=== PATIENT | female | born 1980 | race Two or more races ===

== ENCOUNTER 2023-08-10 23:15 | Emergency (ER) | payer MEDICAID ==
[~2023-08-10] VITALS: Ht 162.6 cm; Wt 97.7 kg
[2023-08-10 23:22] VITALS: TEMP 98
[2023-08-11] MEDS ORDERED: KETOROLAC TROMETHAMINE 30 MG/ML VIAL IVP ONE (00:45)
[2023-08-11] MEDS ORDERED: SODIUM CHLORIDE 0.9% 1,000 ML IV ONE (00:45)
[2023-08-11] MEDS ORDERED: MORPHINE SULFATE 4 MG/ML SYRINGE IVP ONE (00:45)
[2023-08-11] MEDS ORDERED: METHOCARBAMOL 100 MG/ML 10 ML VIAL IVP ONE (00:45)
[2023-08-11 01:04] LABS: BASOPHILS % (AUTO) 0.6 % (0.0-2.0); EOSINOPHILS % (AUTO) 3.7 % (1.0-6.0); HEMATOCRIT 36.7 % (36-46); HEMOGLOBIN 12.3 g/dL (12.0-16.0); LYMPHOCYTES # (AUTO) 2.2 K/uL (1.0-4.8); LYMPHOCYTES % (AUTO) 23.6 % (22.0-44.0); MEAN CORPUSCULAR HEMOGLOBIN 29.6 pg (26.0-34.0); MEAN CORPUSCULAR HGB CONC 33.4 G/dL (31.0-37.0); MEAN CORPUSCULAR VOLUME 89 fL (80-100); MONOCYTES # (AUTO) 0.6 K/uL (0.1-1.0); MONOCYTES % (AUTO) 6.7 % (2.0-9.0); NEUTROPHILS % (AUTO) 65.4 % (40.0-70.0); PLATELET COUNT (AUTO) 273 K/uL (150-450); RED BLOOD CELL COUNT(AUTO) 4.15 MIL/uL (4.00-5.20); RED CELL DISTRIBUTION WIDTH 14.5 % (11.5-14.5); WHITE BLOOD COUNT (AUTO) 9.1 K/uL (4.5-11.0)
[2023-08-11 01:17] LABS: ANION GAP 8 mmol/L (8-16); CALCIUM, TOTAL 9.2 mg/dL (8.8-10.5); CARBON DIOXIDE 26 mmol/L (22-29); CHLORIDE 100 mmol/L (98-107); CREATININE 0.85 mg/dL (0.60-1.30); GLOMERULAR FILTR. RATE CALC > 60 mL/min (>60); GLUCOSE,RANDOM 191 mg/dL (70-110); POTASSIUM 3.6 mmol/L (3.5-5.1); SODIUM SERUM 134 mmol/L (136-145); UREA NITROGEN, BLOOD 13 mg/dL (7-18)
[2023-08-11 01:20] LABS: ALANINE AMINOTRANSFERASE 33 U/L (12-78); ALBUMIN 3.4 g/dL (3.4-5.0); ALKALINE PHOSPHATASE 74 U/L (46-116); ASPARTATE AMINOTRANSFERASE 17 U/L (15-37); BILIRUBIN,TOTAL 0.3 mg/dL (0.1-1.0); LIPASE 38 U/L (16-77); TOTAL PROTEIN, SERUM 7.2 g/dL (6.4-8.2)
[2023-08-11 01:21] LABS: TROPONIN I-HIGH SENSITIVITY 27 ng/L (<51)
[2023-08-11 01:22] LABS: ALCOHOL, BLOOD (SERUM) < 3 mg/dL (0-10)
[2023-08-11 01:23] LABS: LACTIC ACID 0.9 mmol/L (0.4-2.0)
[2023-08-11] MEDS ORDERED: METH-812 PO (05:36)
[2023-08-11] MEDS ORDERED: POLY238P PO (05:36)
[2023-08-11] MEDS ORDERED: HYDR-4072 PO (05:36)
[2023-08-11] MEDS ORDERED: IBUP-1554 PO (05:36)
[2023-08-11] MEDS ORDERED: HYDROCODONE/ACETAMINOPHEN 5-325 MG TABLET PO ONE (05:45)
[2023-08-11 05:54] VITALS: BP 120/81; PULSE 80; RESP 18
== END 2023-08-11 05:57 | disposition home or self-care (01) ==
LOC: EMS 23:17
DX: S13.4XXA Sprain of ligaments of cervical spine, initial encounter (principal); M25.512 Pain in left shoulder; R07.89 Other chest pain; E11.9 Type 2 diabetes mellitus without complications; E78.00 Pure hypercholesterolemia, unspecified; Z90.710 Acquired absence of both cervix and uterus; Z98.890 Other specified postprocedural states; X58.XXXA Exposure to other specified factors, initial encounter; Y93.89 Activity, other specified; Y92.89 Other specified places as the place of occurrence of the external cause; Y99.8 Other external cause status
CPT/HCPCS: 99285; 80053; 82962; 83605; 83690; 84484; 84703; 85025; 36415; 93005; 70450; 96374; 71045; 96375; 96361; 73030; 72125; G0480; J1885; J2270; J2800; J7030; 29240

== ENCOUNTER 2023-08-30 18:14 | Emergency (ER) | payer MEDICAID ==
[~2023-08-30] VITALS: Ht 162.6 cm; Wt 100.0 kg
[~2023-08-30 18:14] MED LIST: HYDR-4072 PO; IBUP-1554 PO; METH-812 PO; POLY238P PO
[2023-08-30 19:32] VITALS: BP 135/85; PULSE 85; RESP 18; TEMP 98
[2023-08-30 19:42] LABS: BASOPHILS % (AUTO) 0.3 % (0.0-2.0); EOSINOPHILS % (AUTO) 2.1 % (1.0-6.0); HEMATOCRIT 36.8 % (36-46); HEMOGLOBIN 12.6 g/dL (12.0-16.0); LYMPHOCYTES % (AUTO) 20.1 % (22.0-44.0); MEAN CORPUSCULAR HGB CONC 34.1 G/dL (31.0-37.0); MEAN CORPUSCULAR VOLUME 88 fL (80-100); MONOCYTES # (AUTO) 0.6 K/uL (0.1-1.0); MONOCYTES % (AUTO) 5.9 % (2.0-9.0); NEUTROPHILS % (AUTO) 71.6 % (40.0-70.0); PLATELET COUNT (AUTO) 301 K/uL (150-450); RED BLOOD CELL COUNT(AUTO) 4.19 MIL/uL (4.00-5.20); RED CELL DISTRIBUTION WIDTH 14.6 % (11.5-14.5); WHITE BLOOD COUNT (AUTO) 9.7 K/uL (4.5-11.0)
[2023-08-30 20:00] LABS: ANION GAP 11 mmol/L (8-16); CALCIUM, TOTAL 9.5 mg/dL (8.8-10.5); CARBON DIOXIDE 25 mmol/L (22-29); CHLORIDE 101 mmol/L (98-107); CREATININE 0.83 mg/dL (0.60-1.30); GLOMERULAR FILTR. RATE CALC > 60 mL/min (>60); GLUCOSE,RANDOM 143 mg/dL (70-110); POTASSIUM 3.6 mmol/L (3.5-5.1); SODIUM SERUM 137 mmol/L (136-145); UREA NITROGEN, BLOOD 10 mg/dL (7-18)
[2023-08-30 20:05] LABS: ALANINE AMINOTRANSFERASE 19 U/L (12-78); ALBUMIN 3.6 g/dL (3.4-5.0); ALKALINE PHOSPHATASE 85 U/L (46-116); ASPARTATE AMINOTRANSFERASE 12 U/L (15-37); BILIRUBIN,TOTAL 0.2 mg/dL (0.1-1.0)
[2023-08-30] MEDS ORDERED: DOXY-354 PO (20:19)
[2023-08-30] MEDS ORDERED: MICO45CR76 VG (20:19)
[2023-08-30] MEDS ORDERED: CEPH-558 PO (20:19)
[2023-08-30] MEDS ORDERED: HYDR-4072 PO (20:19)
[2023-08-30] MEDS ORDERED: IBUP-1554 PO (20:19)
[2023-08-30] MEDS ORDERED: CEPHALEXIN MONOHYDRATE 500 MG CAPSULE PO ONE (20:30)
[2023-08-30] MEDS ORDERED: IBUPROFEN 600 MG TABLET PO ONE (20:30)
[2023-08-30] MEDS ORDERED: HYDROCODONE/ACETAMINOPHEN 5-325 MG TABLET PO ONE (20:30)
[2023-09-02] MEDS ORDERED: MICO45CR76 VG (18:24)
[2023-09-02] MEDS ORDERED: IBUP-1554 PO (18:24)
[2023-09-02] MEDS ORDERED: DOXY-354 PO (18:24)
[2023-09-02] MEDS ORDERED: HYDR-4072 PO (18:24)
[2023-09-02] MEDS ORDERED: CEPH-558 PO (18:24)
== END 2023-08-30 20:24 | disposition home or self-care (01) ==
LOC: EMS 18:14
DX: H60.11 Cellulitis of right external ear (principal); E11.9 Type 2 diabetes mellitus without complications; E78.00 Pure hypercholesterolemia, unspecified; Z90.710 Acquired absence of both cervix and uterus; Z98.890 Other specified postprocedural states
CPT/HCPCS: 80053; 84703; 85025; 99283